=== PATIENT | male | born 1970 | race Caucasian/White ===

== ENCOUNTER 2024-05-17 15:27 | Inpatient (IN) | payer OTHER ==
[2024-05-17] MEDS ORDERED: morphine SULFATE 4 MG/ML VIAL ONE (17:13)
[2024-05-17] MEDS: morphine CARPU-JECT 4 MG/1 ML DISP.SYRIN IVPUSH ONE (17:17)
[2024-05-17 17:18] LABS: HEMATOCRIT 42.1 % (35.4-49); HEMOGLOBIN 14.1 GM/dL (11.7-16.9); MCH 29.1 pg (25.7-33.7); MCHC 33.5 g/dl (32.0-35.9); MEAN CELL VOLUME 86.7 fl (80-96); MEAN PLT VOLUME 8.5 fl (7.5-11.1); PLATELET COUNT 194 10^3/uL (134-434); RBC 4.86 M/mm3 (4.00-5.60); RDW 13.8 % (11.9-15.9)
[2024-05-17 17:21] LABS: EPI CELLS 15 /uL (0-25.1); HYALINE CASTS 0 /uL (0-3.1); URINE APPEARANCE CLEAR; URINE BACTERIA 103 /uL (0-1359); URINE BILIRUBIN NEGATIVE (NEGATIVE); URINE COLOR DK YELLOW; URINE GLUCOSE (UA) 1+ (NEGATIVE); URINE KETONE TRACE (NEGATIVE); URINE LEUK ESTERASE TRACE (NEGATIVE); URINE NITRITE NEGATIVE (NEGATIVE); URINE PROTEIN TRACE (NEGATIVE); URINE RBC 42 /uL (0-23.9); URINE WBC 40 /uL (0-25.8)
[2024-05-17 17:40] LABS: POTASSIUM 3.8 mmol/L (3.5-5.1)
[2024-05-17 17:42] LABS: CALCIUM 9.3 mg/dL (8.5-10.1)
[2024-05-17 17:43] LABS: ALBUMIN 4.4 g/dl (3.4-5.0); BLOOD UREA NITROGEN 12.8 mg/dL (7-18)
[2024-05-17 17:46] LABS: CREATININE 0.8 mg/dL (0.55-1.3)
[2024-05-17 17:47] LABS: BILIRUBIN,TOTAL 0.8 mg/dL (0.2-1); TOT PROT 7.6 g/dl (6.4-8.2)
[2024-05-17 18:28] LABS: ANISOCYTOSIS 0; MACROCYTOSIS 0
[2024-05-17] MEDS: ACETAMINOPHEN 1000 MG/100 ML BAG IVPB ONE (19:33)
[2024-05-17] MEDS ORDERED: ACETAMINOPHEN INJECTION 100 ML ONE (19:33)
[2024-05-17] MEDS: LACTATED RINGERS SOLUTION 1,000 ML/1,000 ML INFUS.BAG IV SCH (20:35)
[2024-05-17 20:44] LABS: INR 1.19 (0.83-1.09); PROTHROMBIN TIME (PATIENT) 13.4 SEC (9.7-13.0)
[2024-05-17] MEDS: CEFOXITIN SODIUM 2 GM in DEXTROSE 5%-WATER - 100 ML IVPB ONE (20:45)
[2024-05-17] MEDS ORDERED: ALBUTEROL SO4 HFA INHALER IH PRN (22:36)
[2024-05-17] MEDS: LACTATED RINGERS SOLUTION 1,000 ML/1,000 ML INFUS.BAG IV STA (23:01)
[2024-05-17] MEDS ORDERED: MORPHINE SULFATE 2 MG/ML SYRINGE ONE (23:26)
[2024-05-18] MEDS: ACETAMINOPHEN 1000 MG/100 ML BAG IVPB PRN (01:45)
[2024-05-18 02:22] VITALS: BMI 29.7
[2024-05-18] MEDS: PIPERACILLIN/TAZOB 4.5 GM 4.5 GM in DEXTROSE 5%-WATER 100 ML IVPB ONE (05:45)
[2024-05-18] MEDS ORDERED: BUPIVACAINE HCL/PF 0.5% (5MG/ML) 10 ML VIAL ONE (07:32)
[2024-05-18] MEDS ORDERED: PROPOFOL 20 ML ONE (07:40)
[2024-05-18] MEDS ORDERED: ROCURONIUM BROMIDE 50 MG/5 ML SYRINGE ONE (07:40)
[2024-05-18] MEDS ORDERED: MIDAZOLAM HCL 2 MG/2 ML SINGLE DOSE VIAL ONE (07:40)
[2024-05-18] MEDS ORDERED: DEXAMETHASONE SOD PHOSPHATE 4 MG/1 ML VIAL ONE (08:01)
[2024-05-18] MEDS ORDERED: ALBUTEROL SO4 HFA INHALER IH ONE (08:01)
[2024-05-18] MEDS: BUPIVACAINE HCL/PF 0.5% (5 MG/ML) 30 ML VIAL IJ ONE ×2 (08:10)
[2024-05-18] MEDS ORDERED: ONDANSETRON 4 MG/2 ML VIAL ONE (08:39)
[2024-05-18] MEDS ORDERED: SUGAMMADEX SODIUM 200 MG/2 ML VIAL ONE (08:39)
[2024-05-18] MEDS ORDERED: ONDANSETRON 4 MG/2 ML VIAL IVPUSH PRN ×2 (09:08→10:26)
[2024-05-18] MEDS ORDERED: ACETAMINOPHEN INJECTION 100 ML ONE (09:37)
[2024-05-18] MEDS: ACETAMINOPHEN 1000 MG/100 ML BAG IVPB ONE (09:43)
[2024-05-18] MEDS ORDERED: ALBUTEROL SO4 HFA INHALER IH PRN (10:26)
[2024-05-18] MEDS ORDERED: LACTATED RINGERS SOLUTION 1,000 ML IV SCH (10:26)
[2024-05-18 10:52] VITALS: RESP 16
[2024-05-18 13:36] LABS: HEMATOCRIT 42.3 % (35.4-49); MCH 29.1 pg (25.7-33.7); MCHC 33.1 g/dl (32.0-35.9); MEAN CELL VOLUME 87.7 fl (80-96); PLATELET COUNT 174 10^3/uL (134-434); RBC 4.82 M/mm3 (4.00-5.60); RDW 13.7 % (11.9-15.9); WHITE BLOOD COUNT 9.1 K/mm3 (4.0-10.0)
[2024-05-18] MEDS: LACTATED RINGERS SOLUTION 1,000 ML IV SCH (13:47)
[2024-05-18] MEDS: ENOXAPARIN NA (PORCINE) 40 MG/0.4 ML DISP.SYRIN SQ SCH (13:48)
[2024-05-18 13:54] LABS: POTASSIUM 3.7 mmol/L (3.5-5.1)
[2024-05-18 13:56] LABS: CALCIUM 8.5 mg/dL (8.5-10.1)
[2024-05-18 13:57] LABS: ALBUMIN 3.6 g/dl (3.4-5.0); MAGNESIUM 2.1 mg/dL (1.8-2.4)
[2024-05-18 13:59] LABS: PHOSPHOROUS 1.8 mg/dL (2.5-4.9)
[2024-05-18 14:00] LABS: CREATININE 0.9 mg/dL (0.55-1.3)
[2024-05-18 14:01] LABS: TOT PROT 6.7 g/dl (6.4-8.2)
[2024-05-18] MEDS: ACETAMINOPHEN 500 MG TABLET (FP) PO PRN (16:23)
[2024-05-18 19:51] VITALS: BP 106/72; PULSE 73; TEMP 99.8
== END 2024-05-18 20:58 | disposition home or self-care (01) | DRG 225 ==
LOC: JER 15:27 → JERBED 21:05 → J8W 05-18 00:28
PROVIDERS: ADMIT Internal Medicine; ATTEND Nurse Practitioner Acute Care
PROC: 0DTJ4ZZ Resection of Appendix, Percutaneous Endoscopic Approach (ICD-10-PCS; principal; 2024-05-18 07:30)
DX: K35.80 Unspecified acute appendicitis (principal); K76.0 Fatty (change of) liver, not elsewhere classified; J45.909 Unspecified asthma, uncomplicated; K76.89 Other specified diseases of liver; R50.9 Fever, unspecified
CPT/HCPCS: 36415; 74177-TC; 80053; 81003; 83735; 84100; 85025; 85027; 85610; 86850; 86900; 86901; 87086; 88304-TC; 93005; 93010; 94760; 99285-25; J0131

== ENCOUNTER 2024-08-14 09:09 | Emergency (ER) | payer OTHER ==
[2024-08-14 09:15] VITALS: RESP 20; TEMP 97.4; BMI 27.4
[2024-08-14] MEDS: SODIUM CHLORIDE 0.9% 500 ML INFUS.BAG IV ONE (10:20)
[2024-08-14] MEDS: ACETAMINOPHEN 1000 MG/100 ML BAG IVPB ONE (10:20)
[2024-08-14] MEDS ORDERED: ACETAMINOPHEN INJECTION 100 ML ONE (10:29)
[2024-08-14 10:50] LABS: BASO % 0.8 % (0-2.0); EOS % 1.5 % (0-4.5); HEMATOCRIT 44.8 % (35.4-49); HEMOGLOBIN 14.6 GM/dL (11.7-16.9); LYMPH % 29.1 % (8-40); MCH 28.8 pg (25.7-33.7); MCHC 32.5 g/dl (32.0-35.9); MEAN CELL VOLUME 88.7 fl (80-96); MEAN PLT VOLUME 8.8 fl (7.5-11.1); MONO % 6.8 % (3.8-10.2); NEUT % 61.8 % (42.8-82.8); PLATELET COUNT 245 10^3/uL (134-434); RBC 5.06 M/mm3 (4.00-5.60); RDW 14.3 % (11.9-15.9); WHITE BLOOD COUNT 5.5 K/mm3 (4.0-10.0)
[2024-08-14 10:58] LABS: PROTHROMBIN TIME (PATIENT) 11.5 SEC (9.7-13.0)
[2024-08-14 11:01] LABS: ACTIVATED PTT 34.2 SECONDS (25.2-36.5)
[2024-08-14 11:12] LABS: POTASSIUM 4.1 mmol/L (3.5-5.1)
[2024-08-14 11:14] LABS: CALCIUM 9.2 mg/dL (8.5-10.1)
[2024-08-14 11:15] LABS: ALBUMIN 4.1 g/dl (3.4-5.0); BLOOD UREA NITROGEN 11.4 mg/dL (7-18)
[2024-08-14 11:18] LABS: CREATININE 0.6 mg/dL (0.55-1.3)
[2024-08-14 11:19] LABS: BILIRUBIN,TOTAL 0.8 mg/dL (0.2-1)
[2024-08-14 11:20] LABS: TOT PROT 7.5 g/dl (6.4-8.2)
[2024-08-14] MEDS ORDERED: MECLIZINE HCL 25 MG TABLET (FP) ONE (12:40)
[2024-08-14 12:41] VITALS: BP 111/70; PULSE 56
[2024-08-14] MEDS: MECLIZINE HCL 25 MG TABLET (FP) PO ONE (12:45)
== END 2024-08-14 13:51 | disposition home or self-care (01) ==
LOC: JER 09:09
DX: R42 Dizziness and giddiness (principal); R51.9 Headache, unspecified; R07.89 Other chest pain
CPT/HCPCS: 36415; 71046-TC-FY; 80053; 84484; 85025; 85379; 85610; 85730; 93005; 93010; 99285-25; J0131